=== PATIENT | female | born 1980 | race Hispanic/Latino ===

== ENCOUNTER 2020-01-11 15:44 | Outpatient (CLI) | payer BC ==
--- NOTE | 2020-01-12 09:07 | MMO ---
Bilateral MAMMO Bilat Screen [facility]. CLINICAL HISTORY: Patient is 39 years old and is seen for screening. The patient has no family history of breast cancer. The patient has no personal history of cancer. VIEWS: The views performed were: bilateral craniocaudal with tomosynthesis and bilateral mediolateral oblique with tomosynthesis. This study has been interpreted with the assistance of computer-aided detection. MAMMOGRAM FINDINGS: The breasts are heterogeneously dense, which could obscure a lesion on mammography. There are no suspicious masses, suspicious calcifications, or new areas of architectural distortion. IMPRESSION: THERE IS NO MAMMOGRAPHIC EVIDENCE OF MALIGNANCY. A ROUTINE FOLLOW-UP MAMMOGRAM IN 1 YEAR IS RECOMMENDED. THE RESULTS OF THIS EXAM WERE SENT TO THE PATIENT. ACR BI-RADS Category 1 - Negative MAMMOGRAPHY NOTE: 1. A negative mammogram report should not delay a biopsy if a dominant of clinically suspicious mass is present. 2. Approximately 10% to 15% of breast cancers are not detected by mammography. 3. Adenosis and dense breasts may obscure an underlying neoplasm. Reported by: SINDY KC MD Electonically Signed: [id number]
== END 2020-01-11 15:45 | disposition home or self-care (01) ==
LOC: BICMAMMO 15:44
PROVIDERS: ATTEND Physician Assistant
DX: Z12.31 Encounter for screening mammogram for malignant neoplasm of breast (principal)
CPT/HCPCS: 77063; 77067

== ENCOUNTER 2022-04-23 13:27 | Outpatient (CLI) | payer BC | END 2022-04-23 13:28 | disposition home or self-care (01) | LOC: BICMAMMO 13:27 | PROVIDERS: ATTEND Physician Assistant | DX: Z12.31 Encounter for screening mammogram for malignant neoplasm of breast (principal); N63.41 Unspecified lump in right breast, subareolar | CPT/HCPCS: 77063; 77067 ==

== ENCOUNTER 2022-04-28 07:52 | Outpatient (CLI) | payer BC | END 2022-04-28 07:53 | disposition home or self-care (01) | LOC: BICULT 07:52 | PROVIDERS: ATTEND Physician Assistant | DX: N63.41 Unspecified lump in right breast, subareolar (principal) ==

== ENCOUNTER 2023-06-11 12:54 | Outpatient (CLI) | payer BC | END 2023-06-11 12:55 | disposition home or self-care (01) | LOC: BICMAMMO 12:54 | PROVIDERS: ATTEND Physician Assistant | DX: Z12.31 Encounter for screening mammogram for malignant neoplasm of breast (principal) | CPT/HCPCS: 77063; 77067 ==

== ENCOUNTER 2024-06-13 07:57 | Outpatient (CLI) | payer BC | END 2024-06-13 07:58 | disposition home or self-care (01) | LOC: BICMAMMO 07:57 | PROVIDERS: ATTEND Nurse Practitioner Family | DX: Z12.31 Encounter for screening mammogram for malignant neoplasm of breast (principal) | CPT/HCPCS: 77063; 77067 ==